=== PATIENT | female | born 2000 | race Caucasian/White ===

== ENCOUNTER → 2019-07-21 16:28 | Outpatient (CLI) | payer SELFPAY ==
[2019-07-21 17:11] LABS: HEMATOCRIT 35.6 % (36.0-48.0); HEMOGLOBIN 11.4 g/dL (12-16); MCH 30.2 pg (26.0-34.0); MCV 94.2 fL (80.0-100.0); MEAN PLATELET VOLUME 10.5 fL (7.4-10.4); RBC 3.78 10x6/uL (4.00-5.40); RDW 13.4 % (11.5-14.5); WBC 11.6 10x3/uL (4.8-10.8)
[2019-07-21 17:29] LABS: CALC OSMOLALITY 271 mosm/kg (275-300); CALCIUM 8.7 mg/dL (8.5-10.1); CHLORIDE - SERUM 107 mmol/L (98-107); CREATININE - SERUM 0.5 mg/dL (0.6-1.3); GLUCOSE 79 mg/dL (74-106); POTASSIUM - SERUM 3.8 mmol/L (3.5-5.1); SODIUM 138 mmol/L (136-145); UREA NITROGEN 5 mg/dL (7-18); eGFR NON AFRICAN AMERICAN > 90 mL/min (90-120)
[2019-07-21 17:33] LABS: ALT (SGPT) 15 U/L (10-68); URIC ACID 2.4 mg/dL (2.6-7.2)
== END | disposition home or self-care (01) ==
LOC: D.LDO 16:28
PROVIDERS: ATTEND Obstetrics & Gynecology
DX: O16.3 Unspecified maternal hypertension, third trimester (principal); Z3A.34 34 weeks gestation of pregnancy

== ENCOUNTER → 2019-08-19 11:22 | Outpatient (CLI) | payer SELFPAY ==
[~2019-08-19 11:22] MED LIST: ACETAMINOPHEN325 MG PO; IBUPROFEN600 MG PO; PERCOCET 10-321 EAC1 PO
[2019-08-22 08:13] VITALS: BMI 53.6
== END | disposition home or self-care (01) ==
LOC: D.LDO 11:22
PROVIDERS: ATTEND Obstetrics & Gynecology
DX: O36.8130 Decreased fetal movements, third trimester, not applicable or unspecified (principal); Z3A.38 38 weeks gestation of pregnancy

== ENCOUNTER 2019-08-22 07:35 | Inpatient (IN) | payer MEDICAID ==
[2019-08-22] VITALS (13 sets, daily range): BP systolic 91–132; BP diastolic 40–66; Ht 152.4 cm; Wt 124.3 kg
[~2019-08-22] VITALS: Ht 152.4 cm; Wt 124.3 kg
[2019-08-22] MEDS ORDERED: ACETAMINOPHEN325 MG PO (08:13)
[2019-08-22 08:33] LABS: HEMATOCRIT 33.9 % (36.0-48.0); HEMOGLOBIN 11.3 g/dL (12-16); MCH 30.7 pg (26.0-34.0); MCHC 33.3 g/dL (31.0-37.0); MCV 92.1 fL (80.0-100.0); MEAN PLATELET VOLUME 10.7 fL (7.4-10.4); RBC 3.68 10x6/uL (4.00-5.40); RDW 14.4 % (11.5-14.5); WBC 12.2 10x3/uL (4.8-10.8)
[2019-08-22 11:04] LABS: APPEARANCE CLOUDY (CLEAR); BACTERIA MODERATE /hpf (NEGATIVE); BILIRUBIN NEGATIVE (NEGATIVE); COLOR YELLOW (YELLOW); GLUCOSE NEGATIVE (NEGATIVE); KETONE NEGATIVE (NEGATIVE); MUCUS <1+ /lpf (NONE SEEN); NITRITE NEGATIVE (NEGATIVE); PROTEIN NEGATIVE (NEGATIVE); RED CELLS - URINE RARE /hpf (0-5); SPECIFIC GRAVITY 1.025 (1.005-1.020)
--- NOTE | 2019-08-22 11:25 | NUR ---
BABY BOY BORN AT 1045.
--- NOTE | 2019-08-22 12:20 | NUR ---
PT RECEIVED TO ROOM 1257 VIA BED FROM RECOVERY. PT IS AAOx3, DENIES PAIN. IV INFUSING PITOCIN IN NS TO LEFT FOREARM PIV ORDERED. ICE PACK OVER ABD INCISION. FF, ML, U/2. SMALL RUBRA LOCHIA, NO CLOTS. PERIPAD CHANGED. MCNAMARA CATH DRAINING DARK YELLOW URINE TO BEDSIDE DRAINAGE. SCD'S ON LE BILAT AND ON PUMP. PT DENIES NAUSEA OR ANY NEEDS. SRUx2, CL IN REACH. VSS, SEE FLOWSHEET. WILL LOCATE FAMILY IN WAITING ROOM.
--- NOTE | 2019-08-22 12:30 | NUR ---
FUNDUS IS FIRM, MIDLINE 3U. REBECA PAD IN PLACE.NO CLOTS PRESENT. WILL CONTINUE TO MONITOR.
--- NOTE | 2019-08-22 13:00 | NUR ---
PT SITTING UP IN BED, WORKING ON NURSERY PAPERWORK AND VISITING WITH FAMILY. PT DENIES PAIN OR ANY NEEDS. FF, ML, U/2. SMALL RUBRA LOCHIA, NO CLOTS. PERIPADS CHANGED. ICE PACK REAPPLIED TO ABD INCISION. SRUx2, CL IN REACH. WILL CONT TO MONITOR.
--- NOTE | 2019-08-22 13:55 | NUR ---
THIS RN TO ROOM PER PT REQUEST MOLD BUILDER LIGHT FOR PAIN MED. PT RATING PAIN APPROX 3-4 AT REST BUT 7/10 WITH MOVEMENT. IV DILAUDID ADMIN PRN ORDERED, SEE EMAR FOR DOC. PT REQUESTING FRESH ICE WATER AND NEW GOWN, WILL RETURN. SRAlthea2, CL IN REACH.
--- NOTE | 2019-08-22 14:15 | NUR ---
FRESH ICE WATER PROVIDED TO PT. FF, ML, U/2. SMALL RUBRA LOCHIA WITH 2 NICKEL SIZED CLOTS NOTED TO PERIPADS, PADS CHANGED. NEW ICE PACK TO ABD INCISION. PT PLACED IN CLEAN GOWN. PT DENIES FURTHER NEEDS. LIGHTS IN ROOM DIM FOR REST. SRUx2, CL IN REACH. SIG OTHER RESTING ON BEDSIDE COUCH. WILL CONT TO MONITOR.
--- NOTE | 2019-08-22 15:15 | NUR ---
THIS RN TO ROOM FOR PT CHECK. PT SITTING UP IN BED, TALKING WITH HEALTH INFO STAFF ABOUT CERTIFICATE. PT C/O SOME MILD NAUSEA BUT STATES "IT'S NOT THAT BAD RIGHT NOW." PT DENIES FURTHER NEEDS AT THIS TIME. VSS, SEE FLOWSHEET. SRUx2, CL IN REACH. WILL CONT TO MONITOR.
--- NOTE | 2019-08-22 16:15 | NUR ---
DR POLANCO ON UNIT, REPORT GIVEN. ORDERS RECEIVED.
--- NOTE | 2019-08-22 16:30 | NUR ---
BRITTA, RN TO ROOM FOR FUNDAL CHECK. REPORTS FF, ML, U/1. SMALL RUBRA LOCHIA WITHOUT CLOTS. CHANGES PERIPADS, EMPTIES 100ML DARK YELLOW URINE FROM MCNAMARA CATH. PT DENIES NEEDS. =
--- NOTE | 2019-08-22 17:37 | NUR ---
KEYANNA CALLEJAS TO ADMIN SCHEDULED MEDS, SEE EMAR.
--- NOTE | 2019-08-22 18:22 | NUR ---
BRITTA, RN TO ROOM TO ADMIN PRN PAIN MED ORDERED PER PT C/O PAIN. REPORTS THAT FUNDUS IS FIRM, ML, U/1. SCANT RUBRA LOCHIA, NO CLOTS. PERIPADS CHANGED. 75ML DARK YELLOW URINE EMPTIED FROM UROMETER.
--- NOTE | 2019-08-22 18:40 | NUR ---
THIS RN TO ROOM FOR PT CHECK. IV SALINE LOCKED PER ORDER. POC DISCUSSED AND UNDERSTANDING VERBALIZED. PT RATES PAIN 1/10 AFTER RECEIVING PAIN MEDS. PT DENIES NEEDS AT THIS TIME. SRUx2, CL IN REACH. SIG OTHER AT BEDSIDE.
--- NOTE | 2019-08-22 19:16 | NUR ---
SHIFT ASSESSMENT COMPLETED, SEE FLOWSHEET.
--- NOTE | 2019-08-22 20:55 | NUR ---
PT SITTIND UP IN BED EATING OUTSIDE FOOD. ICE AND LINENS PROVIDED FOR PTS SIGNIFICANT OTHER PER REQUEST. MCNAMARA CATHETER REMOVED WITHOUT INCIDENT WITH 75 ML DARK YELLOW URINE NOTED IN UROMETER. WILL AMBULATE PT WITHIN THE HOUR
--- NOTE | 2019-08-22 21:30 | NUR ---
PATIENT AMBULATED TO BATHROOM WITH ASSISTANCE, VOIDED WITHOUT INCIDENT AND CLEAN PAD AND PANTIES PROVIDED. BLEEDING REMAINS SMALL, NO FURTHER NEEDS IDENTIFIED.
--- NOTE | 2019-08-22 22:30 | NUR ---
PT AMBULATING IN ROOM, REQUESTING TO PUSH BABY IN CRIB IN THE HALLWAY. STATES THAT WHEN SHE IS DONE WALKING SHE WOULD LIKE TO GET SOME PAIN MEDICATION.
--- NOTE | 2019-08-22 23:32 | NUR ---
MYLICON 80MG PO ADMINISTERED AT THIS TIME FOR GAS.
--- NOTE | 2019-08-22 23:33 | NUR ---
BENADRYL 25MG SLOW IVP ADMINISTERED PER MD ORDERS AND PT REQUEST.
--- NOTE | 2019-08-22 23:34 | NUR ---
PERCOCET 10/325MG PO ADMINISTERED PER PT REQUEST AND MD ORDERS.
--- NOTE | 2019-08-22 23:39 | NUR ---
TORADOL 10MG PO AND REGLAN 10MG PO ADMINISTERED PER MD ORDERS. ICE AND SPRITE PROVIDED PER PT REQUEST. DENIES FURTHER NEEDS AT THIS TIME, WILL CONTINUE TO MONITOR.
--- NOTE | 2019-08-23 01:00 | NUR ---
NURSERY RN TO ROOM AT THIS TIME, NO NEEDS IDENTIFIED. PT ENCOURAGED TO CALL WITH ANY NEEDS. BED REMAINS LOCKED IN LOW POSITION, SIDE RAILS UP X2, CALL ORTIZ AND TRAY TABLE IN REACH. WILL CONTINUE TO MONITOR.
--- NOTE | 2019-08-23 03:40 | NUR ---
PERCOCET 10/325MG PO PER PT REQUEST FOR PAIN, SEE EMAR.
--- NOTE | 2019-08-23 04:15 | NUR ---
ICE PROVIDED PER PT REQUEST, NO FURTHER NEEDS IDENTIFIEND. WILL CONTINUE TO MONITOR.
--- NOTE | 2019-08-23 04:45 | NUR ---
PATIENT AMBULATED TO BATHROOM WITH STEADY GAIT, CLEAN PADS AND PANTIES PROVIDED PER PT REQUEST.
[2019-08-23 05:42] LABS: BASOPHILS 0.2 % (0-2); EOSINOPHILS 1.8 % (0-7); HEMATOCRIT 30.6 % (36.0-48.0); HEMOGLOBIN 9.8 g/dL (12-16); IMMATURE GRANULOCYTES 0.2 % (0-5); LYMPHOCYTES 22.3 % (15-50); MCH 29.7 pg (26.0-34.0); MCV 92.7 fL (80.0-100.0); MEAN PLATELET VOLUME 10.9 fL (7.4-10.4); MONOCYTES 9.7 % (2-11); NEUTROPHILS 65.8 % (40-80); PLATELET COUNT 236 10x3/uL (130-400); RDW 14.4 % (11.5-14.5); WBC 11.4 10x3/uL (4.8-10.8)
--- NOTE | 2019-08-23 05:45 | NUR ---
PT SITTING UP IN BED FEEDING . DENIES NEEDS AT THIS TIME. BED REMAINS LOCKED IN LOW POSITION, SIDE RAILS UPX2, CALL ORTIZ AND TRAY TABLE IN REACH. WILL CONTINUE TO MONITOR.
--- NOTE | 2019-08-23 06:00 | NUR ---
ICE WATER PROVIDED AND PT ENCOURAGED TO DRINK.
[2019-08-23 07:12] LABS: RAPID PLASMA REAGIN Non Reactive (Non Reactive)
[2019-08-23 08:30] VITALS: BP 105/54
--- NOTE | 2019-08-23 08:30 | NUR ---
PT REPORTS SHE HAS BEEN VOIDING, UNMEASURED, WITHOUT DIFFICULTY.
--- NOTE | 2019-08-23 08:30 | NUR ---
AM ASSESSMENT COMPLETED. SEE FLOWSHEET. PT REPORTS SHE FEELS LIKE THE PERCOCET ISN'T HELPING WELL THE "STUFF I GOT THROUGH MY IV, I THINK IT STARTED WITH A D". EXPLAINED TO PT SHE WILL NOT BE SENT HOME WITH IV PAIN MEDICATION, AND THAT MD WILL BE BY SHORTLY TO ROUND ON PTS, PT AGREES. PT DENIES HEAVY BLEEDING OR PASSING CLOTS. FRESH MUG OF ICE WATER SERVED TO PT. SRUP X2, CALL LIGHT AND PHONE WITHIN REACH.
--- NOTE | 2019-08-23 08:40 | NUR ---
SPOKE WITH DR. ALFONSO OVER THE TELEPHONE, REPORT GIVEN TO MD OF DIFFICULTY CONTINOUSLY MONITORING FHR, TELEPHONE ORDER RECEIVED TO TAKE PT OFF MONITORS. MD INQUIRES ABOUT URINE OUTPUT, AND VOLUME AND INQUIRES IF PT HAS RECEIVED BOTH UNITS OF BLOOD, WHICH SHE HAS, AND REPORTED TO MD, DR. ALFONSO ALSO TOLD SHE HAS NOT THROWN UP SINCE BEFORE [facility], AND PT CURRENTLY HAS NO IVF'S INFUSING. MD STATES HE WILL ROUND WITHIN THE HOUR.
--- NOTE | 2019-08-23 10:00 | NUR ---
DR. ALFONSO ON UNIT, TO PT'S ROOM TO SPEAK WITH HER.
--- NOTE | 2019-08-23 11:45 | NUR ---
DIETARY SERVES REGULAR LUNCH TRAY, PT DENIES ALL OTHER NEEDS AT THIS TIME. SR UP X2, CALL LIGHT AND PHONE WITHIN REACH.
--- NOTE | 2019-08-23 16:15 | NUR ---
PT CALLS OUT CLINICAL NURSING INTERN LIGHT AND STATES "YES MA'AM, I HAVE SOME MEDICINE THAT WAS DUE AT 3:30 THAT I WAS SUPPOSED TO TAKE".
--- NOTE | 2019-08-23 16:28 | NUR ---
TO PT'S ROOM, PT IS SITTING UP ON THE SIDE OF THE BED, ON LAPTOP COMPUTER. PT'S SIG OTHER IS AT BEDSIDE ON BEDSIDE SOFA, HOLDING INFANT, NO DISTRESS NOTED. DR. GILL SERVED AT PT'S REQUEST. PT DENIES ALL OTHER NEEDS AT THIS TIME. SRUP X2, CALL LIGHT AND PHONE WITHIN REACH.
[2019-08-23 16:30] VITALS: BP 108/54
--- NOTE | 2019-08-23 16:56 | NUR ---
DIETARY SERVES SUPPER TRAY TO PT, PT DENIES ALL OTHER NEEDS AT THIS TIME.
--- NOTE | 2019-08-23 18:14 | NUR ---
PT CALLS OUT ENTRY LEVEL PROJECT ENGINEER LIGHT AND REQUESTS TORADOL, SEE EMAR FOR ALL MEDS ADM. PT IS C/O PAIN TO IV SITE, SL NOTED TO LEFT INNER FOREARM TO BE RED AND BRUISING TO AREA AROUND CATH INSERTION. IV DC'D WITH CATH INTACT. PT STATES SHE WOULD RATHER HAVE IV RESTARTED TONIGHT IF SHE CHOOSES TO TAKE BENADRYL IV VS PO. IN CRIB, SLEEPING, NO DISTRESS NOTED. PT IS SITTING UP IN BED ON HER LAPTOP. PT DENIES ALL QUESTIONS OR NEEDS. SRUP X2, CALL LIGHT AND PHONE WITHIN REACH.
--- NOTE | 2019-08-23 18:55 | NUR ---
BEDSIDE SHIFT REPORT COMPLETED AT THIS TIME TO ASSUMEPT CARE.
--- NOTE | 2019-08-23 18:55 | NUR ---
REPORT GIVEN TO 7 P SHIFT.
[2019-08-23 19:45] VITALS: BP 114/76
--- NOTE | 2019-08-23 19:45 | NUR ---
SHIFT ASSESSMENT COMPLETED AT THIS TIME, SEE FLOWSHEET.
--- NOTE | 2019-08-23 20:29 | NUR ---
CALLED TO ROOM BY PATIENT, STATES THAT SHE IS NAUSEOUS. PT IS SITTING IN BED EATING POPEYES CHICKEN AND LUX[place]BOURGISH FRIES. PAIN MEDICINE ADN BENADRYL ADMINISTERED PER PT REQUEST AND MD ORDERS. NO FURTHER NEEDS IDENTIFIED. WILL CONTINUE TO MONITOR
--- NOTE | 2019-08-23 22:58 | NUR ---
IN TO CHECK ON PATIENT AND PT IS NOT IN ROOM. KEYANNA BE STATES THAT THE PT BROUGHT THE BABY TO HER TO WATCH SO SHE COULD WALK AROUND FOR ABOUT AN HOUR.
--- NOTE | 2019-08-23 23:45 | NUR ---
PT CALLED GRINDER SETUP OPERATOR ORTIZ REQUESTING HER NEXT SCHEDULED MEDICATION, INFORMED HER IT WOULD BE DUE AT APPX 0015 AND THAT I WOULD BRING IT TO HER AT THAT TIME. PT VERBALIZES UNDERSTANDING AND DENIES OTHER NEEDS.
[2019-08-24 00:12] VITALS: BP 118/71
--- NOTE | 2019-08-24 00:12 | NUR ---
ADMINISTERED TORADOL 10MG PO AND REGLAN 10MG PO PER MD ORDERS. PT DENIES OTHER NEEDS, WILL CONTINUE TO MONITOR.
--- NOTE | 2019-08-24 01:02 | NUR ---
PERCOCET 10MG PO AND MYLICON 80MG PO PER PT REQUEST AND MD ORDERS. PT BED REMAINS LOCKED IN LOW POSITION, SIDERAILS UPX2, CALL ORTIZ AND TRAY TABLE IN REACH. WILL CONTINUE TO MONITOR
--- NOTE | 2019-08-24 02:30 | NUR ---
PT SITTING UP IN BED USING LAPTOP, REMAINS IN OPEN CRIB AT BEDSIDE, NO NEEDS IDENTIFIED. WILL CONTINUE TO MONITOR
--- NOTE | 2019-08-24 03:23 | NUR ---
PT LYING IN BED WITH AT BEDSIDE IN OPEN CRIB. NO NEEDS IDENTIFIED AT THIS TIME, WILL CONTINUE TO MONITOR.
--- NOTE | 2019-08-24 05:04 | NUR ---
PERCOCET 10MG PO PER PT REQUEST AND MD ORDERS. SEE EMAR.
--- NOTE | 2019-08-24 06:19 | NUR ---
TORADOL 10MG PO AND REGLAN 10MG PO PER MD ORDERS. PT LYING ON HER SIDE WITH EYES CLOSED, EASILY AROUSED FOR MEDICATION ADMINISTRATION. SEE EMAR.
[2019-08-24 08:15] VITALS: BP 130/85
--- NOTE | 2019-08-24 08:15 | NUR ---
SITTING UP IN BED. SIGN OTHER FEEDING INFANT. VERBAL RESPONSES APPRO TO QUESTIONS. STATES SHE IS GETTING UP AND NOT HAVING ANY PROBLEMS. STATES IS VOIDING WITHOUT PROBLEMS. STATES HAD SOME PAIN IN SHOULDER LAST NIGHT BUT STATES IS BETTER. ENCOURAGED TO AMBULATE MORE TODAY. ABD INCISION -WNL. REBECA PAD WITH SCANT LOCHIA.
--- NOTE | 2019-08-24 08:37 | NUR ---
ATE 90& OF BREAKFAST.
--- NOTE | 2019-08-24 11:00 | NUR ---
DR ALFONSO TO UNIT TO SEE PT. DISCHARGE WITH ORDER RECEIVED.
--- NOTE | 2019-08-24 11:30 | NUR ---
UP AND ABOUT IN ROOM. DENIES ANY PAIN AT THIS TIME. STATES THAT SHE HAD FLU SHOT AT MD OFFICE THIS SEASON.
[2019-08-24] MEDS ORDERED: PERCOCET 10-321 EAC1 PO (12:34)
[2019-08-24] MEDS ORDERED: IBUPROFEN600 MG PO (12:34)
--- NOTE | 2019-08-24 13:44 | NUR ---
DISCHARGE INST VERBAL AND WRITTEN GIVEN. PFW POST AND POST OP INST GIVEN. SCRIPT GIVEN X1 WITH PERCOCET 10/325 AND IBUPROFEN GIVEN. PT MED REC AND DRUG DATA INFO GIVEN. SEE SIGNED INFO SHEET. PT HEALTH SUMMARY GIVEN. DENIES QUESTIONS.
--- NOTE | 2019-08-24 14:30 | NUR ---
DISCHARGED HOME WITH . TO AUTO VIA W/C.
== END 2019-08-24 14:30 | disposition home or self-care (01) | DRG 788 ==
LOC: D.LD 07:35
PROVIDERS: ADMIT Obstetrics & Gynecology; ATTEND Obstetrics & Gynecology
PROC: 10D00Z1 Extraction of Products of Conception, Low, Open Approach (ICD-10-PCS; principal; 2019-08-22 12:30)
DX: O34.219 Maternal care for unspecified type scar from previous cesarean delivery (principal); Z3A.39 39 weeks gestation of pregnancy; Z37.0 Single live birth; O69.81X0 Labor and delivery complicated by cord around neck, without compression, not applicable or unspecified